=== PATIENT | female | born 1960 ===

== ENCOUNTER 2017-04-03 21:48 | Observation (INO) | payer MEDICAID ==
[2017-04-03 21:56] VITALS: BMI 27.4
--- NOTE | 2017-04-03 22:13 | ED PDOC ---
Arrival/HPI - General Chief Complaint: Dizziness/Lightheaded Time Seen by Provider: 04/03/17 22:07 Historian: Patient - History of Present Illness Narrative History of Present Illness (Text): 04/03/17 22:11 This 56 yo female pmh renal ca. s/p nephrectomy, and lobectomy, presents to this ED c/o left neck pain, radiates to left arm x 2 days. Patient stated she has been feeling dizzy, and she feels she is going to faint. She noted neck and arm pain radiates to her chest. Patient denies sob, abdominal pain, fever, rash, trauma, recent travel, or sick contact. Time/Duration: Other (2 days) Quality: Aching Context: Home Past Medical History - Provider Review Nursing Documentation Reviewed: Yes - Infectious Disease Hx of Infectious Diseases: None - Tetanus Immunization Tetanus Immunization: Unknown - Cardiac Hx Cardiac Disorders: Yes Hx Hypertension: Yes - Pulmonary Hx Respiratory Disorders: Yes Hx Asthma: Yes (SEASONAL-MOSTLY WEATHER, BEEN HOSPITALIZED) Other/Comment: NODULES IN LUNGS - Neurological Hx Dizziness: Yes Hx Paralysis: No - HEENT Hx HEENT Disorder: No Other/Comment: glasses,dry eyes - Renal Hx Renal Disorder: Yes Hx Renal Cancer: Yes (DX: RENAL MASS JANUARY 2015) Other/Comment: Interstitial cystitis. Nephrectomy - Endocrine/Metabolic Hx Endocrine Disorders: No - Hematological/Oncological Hx Blood Disorders: No Hx Blood Transfusions: No - Integumentary Hx Dermatological Disorder: No - Musculoskeletal/Rheumatological Hx Musculoskeletal Disorders: No - Gastrointestinal Hx Gastrointestinal Disorders: Yes Hx Gastroesophageal Reflux: Yes Other/Comment: gi bleed - Genitourinary/Gynecological Hx Genitourinary Disorders: Yes Other/Comment: "INTERSTITIAL CYSTITIS" - Psychiatric Hx Psychophysiologic Disorder: Yes Hx Depression: Yes Hx Emotional Abuse: No Hx Physical Abuse: No Hx Substance Use: No - Surgical History Hx Appendectomy: Yes Hx Pulmonary Surgery: Yes (right lobectomy) Other/Comment: right nephrectomy - Anesthesia Hx Anesthesia: Yes Hx Anesthesia Reactions: Yes (N/V,DIZZINESS) Hx Malignant Hyperthermia: No - Suicidal Assessment Feels Threatened In Home Enviroment: No Family/Social History - Physician Review Nursing Documentation Reviewed: Yes Family/Social History: Other (non-contributory) Smoking Status: Former Smoker Hx Alcohol Use: No Hx Substance Use: No Hx Substance Use Treatment: No Allergies/Home Meds Allergies/Adverse Reactions: Allergies gluten Allergy (Severe, Verified 06/22/16 15:05) DIARRHEA lactose Allergy (Severe, Verified 06/22/16 15:05) DIARRHEA Home Medications: Home Meds Medication Instructions Recorded Confirmed Amitriptyline [Elavil] 5 mg PO DAILY PRN 07/31/15 06/22/16 Zolpidem Tartrate [Ambien] 5 mg PO HS 07/31/15 06/22/16 Ergocalciferol (Vitamin D2) 1,000 units PO DAILY 06/22/16 06/22/16 [Vitamin D] Fluticasone Propionate [Flonase] 2 spray IN DAILY 06/22/16 06/22/16 Hydroxyzine HCl [Hydroxyzine HCl] 10 mg PO HS 06/22/16 06/22/16 Lisinopril [Zestril] 5 mg PO BID 06/22/16 06/22/16 Pentosan Polysulfate Sodium 100 mg PO DAILY 06/22/16 06/22/16 [Elmiron] Ranitidine HCl [Zantac] 150 mg PO DAILY 06/22/16 06/22/16 Review of Systems - Review of Systems Constitutional: Normal. absent: Fatigue, Weight Change, Fevers Eyes: Normal. absent: Vision Changes ENT: Normal. absent: Sore Throat, Rhinorrhea Respiratory: absent: SOB, Cough, Sputum Cardiovascular: Chest Pain, Syncope. absent: Palpitations, Edema, Calf Pain, MEDLEY, Orthopnea Gastrointestinal: Normal. absent: Abdominal Pain, Nausea, Vomiting Genitourinary Female: Normal Musculoskeletal: Arthralgias, Neck Pain Skin: Normal. absent: Rash Neurological: Dizziness. absent: Headache, Focal Weakness, Gait Changes, Speech Changes, Facial Droop, Disequilibrium, Seizure Endocrine: Normal Hemo/Lymphatic: Normal Psychiatric: Normal Physical Exam Vital Signs Temp Pulse Resp BP Pulse Ox 04/03/17 23:53 98.1 F 04/03/17 22:49 89.2 F L 55 L 16 138/82 99 Temperature: Afebrile Blood Pressure: Normal Pulse: Regular Respiratory Rate: Normal Appearance: Positive for: Well-Appearing, Non-Toxic, Comfortable Pain Distress: None Mental Status: Positive for: Alert and Oriented X 3 - Systems Exam Head: Present: Atraumatic, Normocephalic Pupils: Present: PERRL Extroacular Muscles: Present: EOMI Conjunctiva: Present: Normal Mouth: Present: Moist Mucous Membranes Neck: Present: Normal Range of Motion, Trachea Midline. No: Meningeal Signs, MIDLINE TENDERNESS, Paraspinal Tenderness Respiratory/Chest: Present: Clear to Auscultation, Good Air Exchange. No: Respiratory Distress, Accessory Muscle Use Cardiovascular: Present: Regular Rate and Rhythm, Normal S1, S2. No: Murmurs Abdomen: Present: Normal Bowel Sounds. No: Tenderness, Distention, Peritoneal Signs Back: Present: Normal Inspection. No: CVA Tenderness Upper Extremity: Present: Normal Inspection, Normal ROM, NORMAL PULSES, Neurovascularly Intact, Capillary Refill < 2s. No: Cyanosis, Edema Lower Extremity: Present: Normal Inspection, NORMAL PULSES, Normal ROM, Capillary Refill < 2 s. No: Edema, CALF TENDERNESS Neurological: Present: GCS=15, CN II-XII Intact, Speech Normal, Motor Func Grossly Intact, Normal Sensory Function, Normal Cerebellar Funct, Gait Normal, Memory Normal Skin: Present: Warm, Dry, Normal Color. No: Rashes Psychiatric: Present: Alert, Oriented x 3, Normal Insight, Normal Concentration Medical Decision Making ED Course and Treatment: 04/04/17 00:[address] Clark regarding patient c/o dizziness, near syncope with cp, neck pain, and arm pain. EKG shows Bradycardia. He agrees with plan for observation 04/04/17 00:25 There was not remote Telemetry. Observation was for Telemetry was entered Re-evaluation Time: 23:33 Reassessment Condition: Re-examined, Improving,but remains with symptoms - Lab Interpretations Lab Results: 04/03/17 22:40 04/03/17 22:40 Lab Results 04/03/17 22:40: Urine Color Straw, Urine Appearance Clear, Urine pH 7.5, Ur Specific [place] <= 1.005, Urine Protein Negative, Urine Glucose (UA) Negative, Urine Ketones Negative, Urine Blood Negative, Urine Nitrate Negative, Urine Bilirubin Negative, Urine Urobilinogen 0.2, Ur Leukocyte Esterase Negative 04/03/17 22:40: Sodium 138, Potassium 4.1, Chloride 100, Carbon Dioxide 30, Anion Gap 12, BUN 15, Creatinine 1.1, Est GFR ( Amer) > 60, Est GFR (Non- Af Amer) 51, Random Glucose 88, Calcium 9.2, Total Bilirubin 0.3, AST 33, ALT 45 , Alkaline Phosphatase 127 H, Lactate Dehydrogenase 442, Total Creatine Kinase 48, Troponin I < 0.01, Total Protein 7.3, Albumin 4.3, Globulin 3.0, Albumin/ Globulin Ratio 1.4 04/03/17 22:40: D-Dimer, Quantitative 0.33 04/03/17 22:40: WBC 7.0, RBC 4.49, Hgb 13.7, Hct 39.9, MCV 88.9, MCH 30.5, MCHC 34.3, RDW 13.4, Plt Count 221, MPV 9.9, Gran % 57.0, Lymph % (Auto) 33.1, [place] % (Auto) 7.5 H, Eos % (Auto) 1.7, Baso % (Auto) 0.7, Gran # 3.96, Lymph # 2.3, [place] # 0.5, Eos # 0.1, Baso # 0.05 I have reviewed the lab results: Yes Interpretation: No clinic. lab abnormalty - RAD Interpretation Radiology Orders: 04/03/17 22:17 HEAD W/O CONTRAST [CT] Stat 04/03/17 22:23 CHEST PORTABLE [RAD] Stat - EKG Interpretation Interpreted by ED Physician: Yes (Snus Bradycardia @ 52 bpm. Normal interval) Type: 12 lead EKG Comparison: No previous EKG avail. - Medication Orders Current Medication Orders: Discontinued Medications Diazepam (Valium) 2 mg PO ONCE ONE PRN Reason: Protocol Stop: 04/03/17 22:17 Last Admin: 04/03/17 23:56 Dose: 2 mg Sodium Chloride (Sodium Chloride 0.9%) 1,000 mls @ 999 mls/hr IV .Q1H1M STA Stop: 04/03/17 23:14 Last Admin: 04/03/17 23:16 Dose: 999 mls/hr Meclizine HCl (Antivert) 50 mg PO STAT STA Stop: 04/03/17 22:16 Last Admin: 04/03/17 23:15 Dose: 50 mg Disposition/Present on Arrival - Present on Arrival Any Indicators Present on Arrival: No History of DVT/PE: No History of Uncontrolled Diabetes: No Urinary Catheter: No History of Decub. Ulcer: No History Surgical Site Infection Following: None - Disposition Have Diagnosis and Disposition been Completed?: Yes Diagnosis: Bradycardia, Chest pain, Near syncope Disposition: HOSPITALIZED Disposition Time: 00:23 Patient Plan: Admission Patient Problems: Current Active Problems Problem Status Onset Bradycardia Acute Chest pain Acute Near syncope Acute Condition: STABLE Discharge Instructions (ExitCare): Chest Pain (ED) Referrals: Erin Felix DO [Primary Care Provider] - Follow up with primary Forms: [employer] (Mauritian)
[2017-04-03] MEDS ORDERED: Sodium Chloride 0.9% 1,000 ML IV STA (22:14)
[2017-04-03 23:00] LABS: BASO # 0.05 K/mm3 (0.0-2.0); BASO % 0.7 % (0.0-3.0); EOS # 0.1 (0.0-0.7); EOS % 1.7 % (1.5-5.0); GRAN # 3.96 (1.4-6.5); HEMATOCRIT 39.9 % (36.0-48.0); LYMPH # 2.3 (1.2-3.4); LYMPH % 33.1 % (22.0-35.0); MEAN CELL VOLUME 88.9 fl (80.0-105.0); MEAN CORPUSCULAR HEMOGLOBIN 30.5 pg (25.0-35.0); MEAN CORPUSCULAR HGB CONC 34.3 g/dl (31.0-37.0); MEAN PLATELET VOLUME 9.9 fl (7.0-11.0); MONO # 0.5 (0.1-0.6); MONO % 7.5 % (1.0-6.0); PH,URINE 7.5 (4.7-8.0); RED CELL DISTRIBUTION WIDTH 13.4 % (11.5-14.5); URINE BILIRUBIN NEGATIVE (NEGATIVE); URINE BLOOD NEGATIVE (NEGATIVE); URINE GLUCOSE (UA) NEGATIVE (NEGATIVE); URINE KETONE NEGATIVE (NEGATIVE); URINE LEUKOCYTE ESTERASE NEGATIVE Leu/uL (NEGATIVE); URINE PROTEIN NEGATIVE mg/dL (<30 mg/dL); URINE UROBILINOGEN 0.2 E.U./dL (<1 E.U./dL)
[2017-04-03 23:10] LABS: ALB/GLOB RATIO 1.4 (1.1-1.8); ALKALINE PHOSPHATASE 127 U/L (38-126); ALT/SGPT 45 U/L (7-56); AST/SGOT 33 U/L (14-36); BILIRUBIN,TOTAL 0.3 mg/dL (0.2-1.3); BLOOD UREA NITROGEN 15 mg/dL (7-21); CALCIUM 9.2 mg/dL (8.4-10.5); CARBON DIOXIDE 30 mmol/L (21-33); CHLORIDE 100 mmol/L (98-107); GFR AFRICAN-AMERICAN > 60; GLUCOSE,RANDOM 88 mg/dL (70-110); POTASSIUM 4.1 mmol/L (3.6-5.0); SODIUM 138 mmol/L (132-148); TOTAL PROTEIN 7.3 g/dL (5.8-8.3)
[2017-04-03 23:18] LABS: URINE APPEARANCE CLEAR (CLEAR); URINE COLOR STRAW (YELLOW)
[2017-04-03 23:21] LABS: TROPONIN I < 0.01 ng/mL
--- NOTE | 2017-04-04 00:01 | CT ---
EXAM: CT Head Without Intravenous Contrast CLINICAL HISTORY: 56 years old, female; Signs and symptoms; Dizziness TECHNIQUE: Axial computed tomography images of the head/brain without intravenous contrast. All CT scans at this facility use one or more dose reduction techniques, viz.: automated exposure control; ma/kV adjustment per patient size (including targeted exams where dose is matched to indication; i.e. head); or iterative reconstruction technique. COMPARISON: CT - HEAD W/O CONTRAST 03/07/2016 1:21:42 AM FINDINGS: Brain: Minimal atrophy. No intracranial hemorrhage. Small calcification/calcified lesion LEFT frontal region, stable. No definite edema. Ventricles: No hydrocephalus. Bones/joints: No acute fracture. Soft tissues: Unremarkable. Sinuses: No acute sinusitis. Mastoid air cells: No mastoid effusion. Orbits: Unremarkable as visualized. IMPRESSION: 1. No acute intracranial abnormality. 2. Incidental/non-acute findings are described above.
[2017-04-04] MEDS: Pantoprazole 40 mg EC Tab PO SCH (05:29)
--- NOTE | 2017-04-04 06:08 | CP.PCM.HP ---
<NARAYAN TOLENTINO - Last Filed: 04/04/17 05:51> History of Present Illness - History of Present Illness History of Present Illness: Narayan Ade LAWRENCE PGY1 - Internal Medicine H&P CC: Neck pain, dizziness HPI: 56yo F with PMH of stage IV renal cell CA s/p right nephrectomy and RLL lobectomy, and interstitial cystitis, presented to ER complaining of left sided neck pain and dizziness. Left neck pain started 3 days ago, and radiates to her chest and left arm. Pain is aching in character, constant, but occasionally flares up with certain movements. Pain does not worsen with exertion, not associated with dyspnea, diaphoresis, dizziness. No particular remitting factors. She has not had this pain before. Dizziness started 2 days ago. She describes her dizziness as lightheadedness associated with mild nausea, worse when she gets up or moves. The day before she started feeling dizzy, she had a PET scan with PO barium contrast, which caused her to have many soft BM's the subsequent day. She has also been urinating more frequently than usual, not associated with burning, pain, urgency , hesitancy, or hematuria. PMH: As above PSH: R radical nephrectomy 2015, RLL lobectomy 2016 Meds: Elmiron, Flonase, Hydroxyzine, Ambien FHx: DM, HTN, Alzheimer, ESRD 2/2 DM Soc: Tob previous smoker 9PYH quit 2 yrs ago. EtOH denies. Illicits denies. All: NKDA ROS: Constitutional: pt denies fever, chills, generalized weakness ENT: pt denies dysphagia, otalgia, hearing deficit, rhinorrhea Eyes: pt denies sudden loss of vision, diplopia, blurred vision MSK: Admits to neck pain pt denies muscle stiffness, joint pain, extremity cramping Cardio: Admits to CP pt denies sob, heart murmur Pulm: pt denies cough, hemoptysis, wheeze GI: pt denies loss of appetite, abdominal pain, constipation, melena, n/v/d : Admits to urinary frequency pt denies burning on urination, hematuria, urinary urgency Neuro: Admits to dizziness pt denies paresis, paresthesia, ferrell, numbness, tingling Derm: pt denies skin changes, lesions, nail changes Endo: pt denies intolerance to heat/cold, diaphoresis, night sweats, polydipsia Psych: pt denies anxiety, depression, mood changes Present on Admission - Present on Admission Any Indicators Present on Admission: No Past Patient History - Infectious Disease Hx of Infectious Diseases: None - Tetanus Immunizations Tetanus Immunization: Unknown - Past Medical History & Family History Past Medical History?: Yes - Past Social History Smoking Status: Former Smoker - CARDIAC Hx Cardiac Disorders: Yes Hx Hypertension: Yes - PULMONARY Hx Respiratory Disorders: Yes Hx Asthma: Yes (SEASONAL-MOSTLY WEATHER, BEEN HOSPITALIZED) Other/Comment: NODULES IN LUNGS - NEUROLOGICAL Hx Dizziness: Yes Hx Paralysis: No - HEENT Hx HEENT Problems: No Other/Comment: glasses,dry eyes - RENAL Hx Chronic Kidney Disease: Yes Hx Renal (Kidney) Cancer: Yes (DX: RENAL MASS JANUARY 2015) Other/Comment: Interstitial cystitis. Nephrectomy - ENDOCRINE/METABOLIC Hx Endocrine Disorders: No - HEMATOLOGICAL/ONCOLOGICAL Hx Blood Disorders: No Hx Blood Transfusions: No - INTEGUMENTARY Hx Dermatological Problems: No - MUSCULOSKELETAL/RHEUMATOLOGICAL Hx Musculoskeletal Disorders: No - GASTROINTESTINAL Hx Gastrointestinal Disorders: Yes Hx Gastroesophageal Reflux: Yes Other/Comment: gi bleed - GENITOURINARY/GYNECOLOGICAL Hx Genitourinary Disorders: Yes Other/Comment: "INTERSTITIAL CYSTITIS" - PSYCHIATRIC Hx Psychophysiologic Disorder: Yes Hx Depression: Yes Hx Emotional Abuse: No Hx Physical Abuse: No Hx Substance Use: No - SURGICAL HISTORY Hx Appendectomy: Yes Hx Pulmonary Surgery: Yes (right lobectomy) Other/Comment: right nephrectomy - ANESTHESIA Hx Anesthesia: Yes Hx Anesthesia Reactions: Yes (N/V,DIZZINESS) Hx Malignant Hyperthermia: No Meds Allergies/Adverse Reactions: Allergies Allergy/AdvReac Type Severity Reaction Status Date / Time gluten Allergy Severe DIARRHEA Verified 06/22/16 15:05 lactose Allergy Severe DIARRHEA Verified 06/22/16 15:05 Physical Exam - Constitutional Appears: Non-toxic, No Acute Distress - Head Exam Head Exam: ATRAUMATIC, NORMOCEPHALIC - Eye Exam Eye Exam: EOMI, Normal appearance, PERRL - ENT Exam ENT Exam: Mucous Membranes Moist - Neck Exam Neck exam: Negative for: Lymphadenopathy, Thyromegaly Additional comments: Left sided posterior cervical tenderness - Respiratory Exam Respiratory Exam: Chest Wall Tenderness, Clear to Auscultation Bilateral, NORMAL BREATHING PATTERN. absent: Rales, Rhonchi, Wheezes - Cardiovascular Exam Cardiovascular Exam: RRR, +S1, +S2 - GI/Abdominal Exam GI & Abdominal Exam: Normal Bowel Sounds, Soft, Tenderness (minimal, LLQ). absent: Firm, Guarding, Rebound, Rigid - Extremities Exam Extremities exam: Negative for: calf tenderness, pedal edema - Neurological Exam Neurological exam: Alert, CN II-XII Intact, Oriented x3 - Psychiatric Exam Psychiatric exam: Normal Affect, Normal Mood - Skin Skin Exam: Dry, Intact, Normal Color Results - Vital Signs Recent Vital Signs: Last Vital Signs Temp 98.0 F 04/04/17 02:19 Pulse 60 04/04/17 02:19 Resp 18 04/04/17 02:35 BP 129/88 04/04/17 02:19 Pulse Ox 99 04/04/17 02:35 - Labs Result Diagrams: 04/03/17 22:40 04/03/17 22:40 Assessment & Plan - Assessment and Plan (Free Text) Assessment: 56 yo F with PMH of renal cell CA and interstitial cystitis presents for left neck pain radiating to chest and left arm and dizziness Plan: 1. Neck pain radiating to chest - r/o ACS - Pain is not exertional and is reproducible on palpation of lateral chest wall , and on leftward rotation and sidebending of the neck - Most likely paracervical muscle spasm. Less likely ACS - Trop negative x1, continue to trend - EKG in ER shows NSR with no ST-T wave changes - Start Flexeril 5mg PO TID 2. Presyncope - Symptoms are associated with activity and positional changes, most likely orthostasis 2/2 mild dehydration - Orthostatic vital signs ordered - Rehydrate and reevaluate 3. CHYNA - BUN 15, Cr 1.1, elevated compared to her baseline - Likely prerenal, 2/2 mild dehydration after PO barium contrast administration - IVF NS @150cc/hr - Recheck with AM labs GI/DVT Ppx Patient seen, discussed, and reviewed with attending <Den Clark - Last Filed: 04/04/17 06:28> Results - Vital Signs Recent Vital Signs: Last Vital Signs Temp 98.6 F 04/04/17 06:00 Pulse 72 04/04/17 06:00 Resp 20 04/04/17 06:00 BP 133/76 04/04/17 06:00 Pulse Ox 96 04/04/17 06:00 - Labs Result Diagrams: 04/03/17 22:40 04/03/17 22:40 Attending/Attestation - Attestation I have personally seen and examined this patient.: Yes I have fully participated in the care of the patient.: Yes I have reviewed all pertinent clinical information: Yes Notes (Text): 04/04/17 06:27 Patient was seen when she was in [id number]. Agree with history, physical examination, assessment and plan.
[2017-04-04 07:33] LABS: BASO # 0.05 K/mm3 (0.0-2.0); BASO % 0.6 % (0.0-3.0); EOS # 0.1 (0.0-0.7); EOS % 1.5 % (1.5-5.0); GRAN # 4.32 (1.4-6.5); GRAN % 53.7 % (50.0-68.0); HEMATOCRIT 41.4 % (36.0-48.0); LYMPH # 2.9 (1.2-3.4); LYMPH % 36.1 % (22.0-35.0); MEAN CELL VOLUME 88.7 fl (80.0-105.0); MEAN CORPUSCULAR HGB CONC 33.8 g/dl (31.0-37.0); MEAN PLATELET VOLUME 10.1 fl (7.0-11.0); MONO # 0.7 (0.1-0.6); MONO % 8.1 % (1.0-6.0); RED CELL DISTRIBUTION WIDTH 13.4 % (11.5-14.5)
[2017-04-04] MEDS: Sodium Chloride 0.9% 1,000 ML IV SCH ×2 (07:37→17:51)
[2017-04-04 07:59] LABS: ALB/GLOB RATIO 1.4 (1.1-1.8); ALKALINE PHOSPHATASE 123 U/L (38-126); ALT/SGPT 49 U/L (7-56); AST/SGOT 30 U/L (14-36); BILIRUBIN,TOTAL 0.5 mg/dL (0.2-1.3); BLOOD UREA NITROGEN 13 mg/dL (7-21); CALCIUM 9.3 mg/dL (8.4-10.5); CARBON DIOXIDE 27 mmol/L (21-33); CHLORIDE 105 mmol/L (98-107); GFR AFRICAN-AMERICAN > 60; GLUCOSE,RANDOM 99 mg/dL (70-110); MAGNESIUM 2.2 mg/dL (1.7-2.2); PHOSPHOROUS 4.2 mg/dL (2.5-4.5); POTASSIUM 4.5 mmol/L (3.6-5.0); SODIUM 141 mmol/L (132-148)
[2017-04-04 08:15] LABS: TROPONIN I < 0.01 ng/mL
--- NOTE | 2017-04-04 09:19 | RAD ---
HISTORY: CP COMPARISON: Comparison is made to 02/14/2015 FINDINGS: LUNGS: Elevation of the right hemidiaphragm is noted which could be due to right lower lobe opacity/atelectasis or subpulmonic effusion. Otherwise no significant interval change in the lungs. PLEURA: No significant pleural effusion identified, no pneumothorax apparent. CARDIOVASCULAR: Normal. OSSEOUS STRUCTURES: No significant abnormalities. VISUALIZED UPPER ABDOMEN: Normal. OTHER FINDINGS: None. IMPRESSION: Elevation of the right hemidiaphragm of uncertain etiology could be due to right lower lobe atelectasis or subpulmonic effusion.
[2017-04-04 11:35] LABS: CHOLESTEROL 182 mg/dL (130-200)
--- NOTE | 2017-04-04 14:44 | CP.PCM.PCO ---
Physician Communication Note - Physician Communication Note Physician Communication Note: called [facility] ([facility]), confirmed meds ( incl synthroid 25mcg qd)
--- NOTE | 2017-04-04 16:34 | CARD ---
APPROVED REPORT EKG Measurement Heart [id number] <Conclusion> Marked sinus bradycardia
--- NOTE | 2017-04-04 16:53 | CARD ---
APPROVED REPORT EKG Measurement Heart [id number] [id number] <Conclusion> Sinus bradycardia Otherwise normal ECG
--- NOTE | 2017-04-04 18:34 | CARD ---
APPROVED REPORT EXAM: Two-dimensional and M-mode echocardiogram with Doppler and color Doppler. INDICATION LV Function:SystolicDiastolic 2D DIMENSIONS Left Atrium (2D)3.3 (1.6-4.0cm)IVSd1.1 (0.7-1.1cm) LVDd4.1 (3.9-5.9cm)PWd1.0 (0.7-1.1cm) LVDs2.8 (2.5-4.0cm)FS (%) 32.6 % LVEF (%)61.4 (>50%) M-Mode DIMENSIONS Aortic Root2.60 (2.2-3.7cm)Aortic Cusp Exc.1.60 (1.5-2.0cm) Aortic Valve AoV Peak Dhpjmelz430.0cm/Yari Peak GR.16mmHg Mitral Valve MV E Gzqkttqx146.0cm/sMV A Fellybdy903.0cm/sE/A ratio1.0 TDI E/Lateral E'0.0E/Medial E'0.0 Tricuspid Valve TR Peak [id number]/sRAP [id number] Peak Gr.29mmHg [id number] LEFT VENTRICLE The left ventricle is normal size. There is borderline concentric left ventricular hypertrophy. The left ventricular function is normal.EF-55-60% There is normal LV segmental wall motion. Transmitral Doppler flow pattern is Grade II-pseudonormal filling dynamics. No left ventricle thrombus noted on this study. There is no ventricular septal defect visualized. There is no left ventricular aneurysm. There is no mass noted in the left ventricle. RIGHT VENTRICLE The right ventricle is normal size. There is normal right ventricular wall thickness. The right ventricular systolic function is normal. ATRIA The left atrium size is normal. The right atrium size is normal. The interatrial septum is intact with no evidence for an atrial septal defect. AORTIC VALVE The aortic valve is thickened but opens well. The aortic valve is mildly sclerotic. No aortic regurgitation is present. There is no aortic valvular stenosis. There is no aortic valvular vegetation. MITRAL VALVE The mitral valve is thickened but opens well. Mitral regurgitation is mild. There is no mitral valve stenosis. There is no evidence of mitral valve prolapse. TRICUSPID VALVE The tricuspid valve leaflets are thickened , but open well. There is mild to moderate tricuspid regurgitation.RVSP-39 mmof Hg. There is no tricuspid valve stenosis. There is no tricuspid valve prolapse or vegetation. PULMONIC VALVE The pulmonic valve is borderline thickened. There is no pulmonic valvular regurgitation. There is no pulmonic valvular stenosis. GREAT VESSELS The aortic root is normal in size. The ascending aorta is normal in size. The pulmonary artery is normal. The IVC is normal in size and collapses >50% with inspiration. PERICARDIAL EFFUSION There is no pleural effusion. There is no pericardial effusion. <Conclusion> Normal chamber Size. Ef-55-60% Mitral regurgitation is mild. There is mild to moderate tricuspid regurgitation.RVSP-39 mmof Hg. No vegetation or thrombus noted.,
--- NOTE | 2017-04-04 22:34 | CON ---
DATE: 04/04/2017 HISTORY OF PRESENT ILLNESS: The patient is a 56-year-old women who presents with a syncopal episode. The patient's past medical history is notable for history of hypertension. No previous cardiac history is known. In addition, the patient complained of some transient chest discomfort. PAST MEDICAL HISTORY: Includes history of nephrectomy for renal CA as well as lobectomy. Currently, the patient is in bed without shortness of breath, without chest pain. SOCIAL HISTORY: She denies smoking. REVIEW OF SYSTEMS: A 14-point review of systems was reviewed. No cardiac symptomatology was noted. PHYSICAL EXAMINATION: VITAL SIGNS: Blood pressure is 116/84, there are no orthostatic changes, heart rate is in the 80s. NECK: Negative JVD. LUNGS: Without rales. HEART: Reveals S1 and S2. EXTREMITIES: Without edema. EKG is unremarkable. Telemetry monitoring shows no arrhythmias. LABORATORIES: Include troponins are negative x3. IMPRESSION: 1. Atypical chest pain. 2. No evidence for acute coronary syndrome. 3. Hypertension. 4. History of nephrectomy. 5. Syncope. Echocardiogram reveals good LV function and no LV outflow obstruction. There is no cardiac cause identified for her syncopal episode. There is no evidence for acute coronary syndrome. Given these findings, I have discussed with her about a stress test given her risk factors and chest pain. She is agreeable, we will arrange for an outpatient stress test. We will discontinue telemetry today. Tesfaye Acevedo MD
[2017-04-05 01:35] VITALS: RESP 20
[2017-04-05] MEDS: Sodium Chloride 0.9% 1,000 ML IV SCH (03:31)
[2017-04-05] MEDS ORDERED: Levothyroxine 25 MCG TAB PO SCH (06:00)
[2017-04-05] MEDS: Pantoprazole 40 mg EC Tab PO SCH (06:18)
[2017-04-05 07:40] LABS: ALB/GLOB RATIO 1.3 (1.1-1.8); ALKALINE PHOSPHATASE 128 U/L (38-126); ALT/SGPT 51 U/L (7-56); AST/SGOT 32 U/L (14-36); BILIRUBIN,TOTAL 0.6 mg/dL (0.2-1.3); BLOOD UREA NITROGEN 16 mg/dL (7-21); CALCIUM 9.2 mg/dL (8.4-10.5); CARBON DIOXIDE 26 mmol/L (21-33); CHLORIDE 104 mmol/L (95-110); GFR AFRICAN-AMERICAN > 60; GLUCOSE,RANDOM 90 mg/dL (70-110); POTASSIUM 4.1 mmol/L (3.6-5.0); SODIUM 141 mmol/L (132-148); TOTAL PROTEIN 7.1 g/dL (5.8-8.3)
[2017-04-05 07:57] VITALS: BP 128/81; PULSE 55; TEMP 98.1; O2SAT 96
[2017-04-05 08:12] LABS: BASO # 0.04 K/mm3 (0.0-2.0); BASO % 0.6 % (0.0-3.0); EOS # 0.1 (0.0-0.7); EOS % 1.5 % (1.5-5.0); GRAN # 3.88 (1.4-6.5); GRAN % 53.8 % (50.0-68.0); HEMATOCRIT 40.6 % (36.0-48.0); LYMPH # 2.7 (1.2-3.4); LYMPH % 36.8 % (22.0-35.0); MEAN CORPUSCULAR HEMOGLOBIN 29.6 pg (25.0-35.0); MEAN CORPUSCULAR HGB CONC 33.3 g/dl (31.0-37.0); MEAN PLATELET VOLUME 10.3 fl (7.0-11.0); MONO # 0.5 (0.1-0.6); MONO % 7.3 % (1.0-6.0); RED CELL DISTRIBUTION WIDTH 13.4 % (11.5-14.5); WHITE BLOOD COUNT 7.2 10^3/ul (4.5-11.0)
--- NOTE | 2017-04-05 15:23 | CP.PCM.DIS ---
<JAMARCUS CISNEROS - Last Filed: 04/05/17 22:54> Provider - Provider Date of Admission: 04/04/17 00:18 Attending physician: Randall Meyers MD Primary care physician: Erin Felix DO Time Spent in preparation of Discharge (in minutes): 45 Hospital Course - Lab Results Lab Results: Most Recent Lab Values WBC 7.2 10^3/ul (4.5-11.0) 04/05/17 07:07 RBC 4.56 10^6/uL (3.5-6.1) 04/05/17 07:07 Hgb 13.5 g/dL (12.0-16.0) 04/05/17 07:07 Hct 40.6 % (36.0-48.0) 04/05/17 07:07 MCV 89.0 fl (80.0-105.0) 04/05/17 07:07 MCH 29.6 pg (25.0-35.0) 04/05/17 07:07 MCHC 33.3 g/dl (31.0-37.0) 04/05/17 07:07 RDW 13.4 % (11.5-14.5) 04/05/17 07:07 Plt Count 221 10^3/uL (120.0-450.0) 04/05/17 07:07 MPV 10.3 fl (7.0-11.0) 04/05/17 07:07 Gran % 53.8 % (50.0-68.0) 04/05/17 07:07 Lymph % (Auto) 36.8 % (22.0-35.0) H 04/05/17 07:07 Levy % (Auto) 7.3 % (1.0-6.0) H 04/05/17 07:07 Eos % (Auto) 1.5 % (1.5-5.0) 04/05/17 07:07 Baso % (Auto) 0.6 % (0.0-3.0) 04/05/17 07:07 Gran # 3.88 (1.4-6.5) 04/05/17 07:07 Lymph # 2.7 (1.2-3.4) 04/05/17 07:07 Levy # 0.5 (0.1-0.6) 04/05/17 07:07 Eos # 0.1 (0.0-0.7) 04/05/17 07:07 Baso # 0.04 K/mm3 (0.0-2.0) 04/05/17 07:07 D-Dimer, Quantitative 0.33 mg/L FEU (0-0.50) 04/03/17 22:40 Sodium 141 mmol/L (132-148) 04/05/17 07:07 Potassium 4.1 mmol/L (3.6-5.0) 04/05/17 07:07 Chloride 104 mmol/L (95-110) 04/05/17 07:07 Carbon Dioxide 26 mmol/L (21-33) 04/05/17 07:07 Anion Gap 15 (10-20) 04/05/17 07:07 BUN 16 mg/dL (7-21) 04/05/17 07:07 Creatinine 0.9 mg/dL (0.5-1.4) 04/05/17 07:07 Est GFR ( Amer) > 60 04/05/17 07:07 Est GFR (Non-Af Amer) > 60 04/05/17 07:07 Random Glucose 90 mg/dL (70-110) 04/05/17 07:07 Hemoglobin A1c 5.8 % (4.2-6.5) 04/04/17 06:00 Calcium 9.2 mg/dL (8.4-10.5) 04/05/17 07:07 Phosphorus 4.2 mg/dL (2.5-4.5) 04/04/17 06:40 Magnesium 2.2 mg/dL (1.7-2.2) 04/04/17 06:40 Total Bilirubin 0.6 mg/dL (0.2-1.3) 04/05/17 07:07 AST 32 U/L (14-36) 04/05/17 07:07 ALT 51 U/L (7-56) 04/05/17 07:07 Alkaline Phosphatase 128 U/L (38-126) H 04/05/17 07:07 Lactate Dehydrogenase 442 U/L (333-699) 04/03/17 22:40 Total Creatine Kinase 48 U/L (35-230) 04/03/17 22:40 Troponin I < 0.01 ng/mL 04/04/17 11:45 Total Protein 7.1 g/dL (5.8-8.3) 04/05/17 07:07 Albumin 4.0 g/dL (3.0-4.8) 04/05/17 07:07 Globulin 3.1 gm/dL 04/05/17 07:07 Albumin/Globulin Ratio 1.3 (1.1-1.8) 04/05/17 07:07 Triglycerides 112 mg/dL (35-160) 04/04/17 06:05 Cholesterol 182 mg/dL (130-200) 04/04/17 06:05 LDL Cholesterol Direct 114 mg/dL (0-129) 04/04/17 06:05 HDL Cholesterol 44 mg/dL (29-60) 04/04/17 06:05 Thyroxine (T4) 7.2 ug/dL (5.5-11.0) 04/04/17 11:45 TSH 3rd Generation 6.62 mIU/mL (0.46-4.68) H 04/04/17 11:45 Urine Color Straw (YELLOW) 04/03/17 22:40 Urine Appearance Clear (CLEAR) 04/03/17 22:40 Urine pH 7.5 (4.7-8.0) 04/03/17 22:40 Ur Specific Dawson <= 1.005 (1.005-1.035) 04/03/17 22:40 Urine Protein Negative mg/dL (<30 mg/dL) 04/03/17 22:40 Urine Glucose (UA) Negative mg/dL (NEGATIVE) 04/03/17 22:40 Urine Ketones Negative mg/dL (NEGATIVE) 04/03/17 22:40 Urine Blood Negative (NEGATIVE) 04/03/17 22:40 Urine Nitrate Negative (NEGATIVE) 04/03/17 22:40 Urine Bilirubin Negative (NEGATIVE) 04/03/17 22:40 Urine Urobilinogen 0.2 E.U./dL (<1 E.U./dL) 04/03/17 22:40 Ur Leukocyte Esterase Negative Alexandra/uL (NEGATIVE) 04/03/17 22:40 - Hospital Course Hospital Course: 56 yo F with PMH of renal cell CA and interstitial cystitis presents for left neck pain radiating to chest and left arm and dizziness, pre-syncope, as well as increased urination. Due to pt's hx of R nephrectomy and RLL partial lobectomy, she was worried that she could have a problem with her good kidney. Pt's complaints were nonspecific. Pt was transferred to med-surg floor for workup. CT head was done and was unremarkable. EKG showed sinus kari, Echo showed EF 60% and no significant valvular dysfunction. Cardiology was consulted and they recommended outpatient stress test since echo was unremarkable and pt's heart monitor strip was uneventful. TSH was elevated but T4 level was normal, indicating subclinical hypothyroidism; pt states she's currently not taking synthroid due to a reaction. Carotid doppler test is still not read at this moment, but patient will be discharged and communicated with regarding results when they come back. PT eval was put, and resident walked with patient and pt was noted to have good balance and no dizziness/orthostasis. Pt is prescribed flexeril for her intermittent pain, and recommended to f.u with her associate financial planner for renal fxn maintenance, sand control worker for thyroid fxn mangement, restorer [employer] prints for stress test, and PMD for f/u. - Date & Time of H&P Date of H&P: 04/04/17 Time of H&P: 05:50 Discharge Exam - Additional Findings Additional findings: - Constitutional Appears: Non-toxic, No Acute Distress - Head Exam Head Exam: ATRAUMATIC, NORMOCEPHALIC - Eye Exam Eye Exam: EOMI, Normal appearance, PERRL - ENT Exam ENT Exam: Mucous Membranes Moist - Neck Exam Neck exam: Negative for: Lymphadenopathy, Thyromegaly - Respiratory Exam Respiratory Exam: Clear to Auscultation Bilateral, NORMAL BREATHING PATTERN. absent: Rales, Rhonchi, Wheezes - Cardiovascular Exam Cardiovascular Exam: RRR, +S1, +S2 - GI/Abdominal Exam GI & Abdominal Exam: Normal Bowel Sounds, Soft, Tenderness (minimal, LLQ). absent: Firm, Guarding, Rebound, Rigid - Extremities Exam Extremities exam: Negative for: calf tenderness, pedal edema - Neurological Exam Neurological exam: Alert, CN II-XII Intact, Oriented x3 - Psychiatric Exam Psychiatric exam: Normal Affect, Normal Mood - Skin Skin Exam: Dry, Intact, Normal Color Discharge Plan - Discharge Medications Prescriptions: Cyclobenzaprine [Flexeril] 5 mg PO BID PRN #10 tab PRN Reason: Muscle Spasm - Follow Up Plan Condition: STABLE Disposition: HOME/ ROUTINE Additional Instructions: - please take the Flexeril when you feel the muscle spasms, as prescribed - please follow up with your PMD within 1 week - please follow up with your associate financial planner for continued management of your kidney function - please follow up with your sand control worker for workup and management of your thyroid function - please follow up with the restorer paper and prints Dr. Acevedo for a stress test - we will contact if there's any pertinent results from your carotid ultrasound study - if you experience any dizziness, falls, chest pain, or sob, please go to ER for workup Thanks Jamarcus Cisneros PGY1 Dr. Meyers, Attending Physician Referrals: Erin Felix DO [Primary Care Provider] - Tesfaye Acevedo MD [Staff Provider] - <Randall Meyers - Last Filed: 04/06/17 13:55> Provider - Provider Date of Admission: 04/04/17 00:18 Attending physician: Randall Meyers MD Primary care physician: Erin Felix DO Hospital Course - Lab Results Lab Results: Most Recent Lab Values WBC 7.2 10^3/ul (4.5-11.0) 04/05/17 07:07 RBC 4.56 10^6/uL (3.5-6.1) 04/05/17 07:07 Hgb 13.5 g/dL (12.0-16.0) 04/05/17 07:07 Hct 40.6 % (36.0-48.0) 04/05/17 07:07 MCV 89.0 fl (80.0-105.0) 04/05/17 07:07 MCH 29.6 pg (25.0-35.0) 04/05/17 07:07 MCHC 33.3 g/dl (31.0-37.0) 04/05/17 07:07 RDW 13.4 % (11.5-14.5) 04/05/17 07:07 Plt Count 221 10^3/uL (120.0-450.0) 04/05/17 07:07 MPV 10.3 fl (7.0-11.0) 04/05/17 07:07 Gran % 53.8 % (50.0-68.0) 04/05/17 07:07 Lymph % (Auto) 36.8 % (22.0-35.0) H 04/05/17 07:07 Levy % (Auto) 7.3 % (1.0-6.0) H 04/05/17 07:07 Eos % (Auto) 1.5 % (1.5-5.0) 04/05/17 07:07 Baso % (Auto) 0.6 % (0.0-3.0) 04/05/17 07:07 Gran # 3.88 (1.4-6.5) 04/05/17 07:07 Lymph # 2.7 (1.2-3.4) 04/05/17 07:07 Levy # 0.5 (0.1-0.6) 04/05/17 07:07 Eos # 0.1 (0.0-0.7) 04/05/17 07:07 Baso # 0.04 K/mm3 (0.0-2.0) 04/05/17 07:07 D-Dimer, Quantitative 0.33 mg/L FEU (0-0.50) 04/03/17 22:40 Sodium 141 mmol/L (132-148) 04/05/17 07:07 Potassium 4.1 mmol/L (3.6-5.0) 04/05/17 07:07 Chloride 104 mmol/L (95-110) 04/05/17 07:07 Carbon Dioxide 26 mmol/L (21-33) 04/05/17 07:07 Anion Gap 15 (10-20) 04/05/17 07:07 BUN 16 mg/dL (7-21) 04/05/17 07:07 Creatinine 0.9 mg/dL (0.5-1.4) 04/05/17 07:07 Est GFR ( Amer) > 60 04/05/17 07:07 Est GFR (Non-Af Amer) > 60 04/05/17 07:07 Random Glucose 90 mg/dL (70-110) 04/05/17 07:07 Hemoglobin A1c 5.8 % (4.2-6.5) 04/04/17 06:00 Calcium 9.2 mg/dL (8.4-10.5) 04/05/17 07:07 Phosphorus 4.2 mg/dL (2.5-4.5) 04/04/17 06:40 Magnesium 2.2 mg/dL (1.7-2.2) 04/04/17 06:40 Total Bilirubin 0.6 mg/dL (0.2-1.3) 04/05/17 07:07 AST 32 U/L (14-36) 04/05/17 07:07 ALT 51 U/L (7-56) 04/05/17 07:07 Alkaline Phosphatase 128 U/L (38-126) H 04/05/17 07:07 Lactate Dehydrogenase 442 U/L (333-699) 04/03/17 22:40 Total Creatine Kinase 48 U/L (35-230) 04/03/17 22:40 Troponin I < 0.01 ng/mL 04/04/17 11:45 Total Protein 7.1 g/dL (5.8-8.3) 04/05/17 07:07 Albumin 4.0 g/dL (3.0-4.8) 04/05/17 07:07 Globulin 3.1 gm/dL 04/05/17 07:07 Albumin/Globulin Ratio 1.3 (1.1-1.8) 04/05/17 07:07 Triglycerides 112 mg/dL (35-160) 04/04/17 06:05 Cholesterol 182 mg/dL (130-200) 04/04/17 06:05 LDL Cholesterol Direct 114 mg/dL (0-129) 04/04/17 06:05 HDL Cholesterol 44 mg/dL (29-60) 04/04/17 06:05 Thyroxine (T4) 7.2 ug/dL (5.5-11.0) 04/04/17 11:45 TSH 3rd Generation 6.62 mIU/mL (0.46-4.68) H 04/04/17 11:45 Urine Color Straw (YELLOW) 04/03/17 22:40 Urine Appearance Clear (CLEAR) 04/03/17 22:40 Urine pH 7.5 (4.7-8.0) 04/03/17 22:40 Ur Specific Dawson <= 1.005 (1.005-1.035) 04/03/17 22:40 Urine Protein Negative mg/dL (<30 mg/dL) 04/03/17 22:40 Urine Glucose (UA) Negative mg/dL (NEGATIVE) 04/03/17 22:40 Urine Ketones Negative mg/dL (NEGATIVE) 04/03/17 22:40 Urine Blood Negative (NEGATIVE) 04/03/17 22:40 Urine Nitrate Negative (NEGATIVE) 04/03/17 22:40 Urine Bilirubin Negative (NEGATIVE) 04/03/17 22:40 Urine Urobilinogen 0.2 E.U./dL (<1 E.U./dL) 04/03/17 22:40 Ur Leukocyte Esterase Negative Alexandra/uL (NEGATIVE) 04/03/17 22:40 Attending/Attestation - Attestation I have personally seen and examined this patient.: Yes I have fully participated in the care of the patient.: Yes I have reviewed all pertinent clinical information, including history, physical exam and plan: Yes Notes (Text): I have seen and examined the patient at bedside. Agree with the above note with the following additions/ exceptions: Briefly this is 56 year old female with history of renal cell cancer, interstitial cystitis who presented with musculoskeletal pain which got imprved with flexeril. Cardiology consult was obtained and she was recommended to have outpateint stress test. Echo was normal. Carotid duplex still pending. She also has subclinnical hypothyroidism and she has already been seeing sand control worker as an outpatient. Patient reports that she is allergic to synthroid. Her gait was stable. Upon discharge patient will follow up with Dr Felix. Dr Randall Meyers
--- NOTE | 2017-04-06 17:57 | US ---
PROCEDURE: Bilateral carotid artery duplex ultrasound HISTORY: Carotid stenosis PHYSICIAN(S): Tesfaye Ramos MD. TECHNIQUE: Duplex sonography and color-flow Doppler were used to evaluate the carotid bifurcations and limited segments of the vertebral arteries bilaterally. FINDINGS: There is mild smooth hypoechoic plaque noted at the carotid bifurcations bilaterally. The peak systolic velocity in the proximal right internal carotid artery is 100 cm/sec. This corresponds to a 20 to 39% proximal right ICA stenosis. Normal systolic velocities are noted in the proximal right external carotid artery. There is antegrade flow in the right vertebral artery. The peak systolic velocity in the proximal left internal carotid artery is 102 cm/sec. This corresponds to a 20 to 39% proximal left ICA stenosis. Normal systolic velocities are noted in the proximal left external carotid artery. There is antegrade flow in the left vertebral artery. IMPRESSION: 1. Bilateral 20-39% proximal ICA stenoses. 2. Antegrade flow in both vertebral arteries.
== END 2017-04-05 17:28 | disposition home or self-care (01) ==
LOC: ED 21:48 → ERH 04-04 00:18 → 2RSO 04-04 02:39 → 5RNO 04-04 18:52
PROVIDERS: ADMIT Hospitalist; ATTEND Hospitalist
DX: R07.89 Other chest pain (principal); N17.9 Acute kidney failure, unspecified; N30.10 Interstitial cystitis (chronic) without hematuria; J45.909 Unspecified asthma, uncomplicated; G30.9 Alzheimer's disease, unspecified; F02.80 Dementia in other diseases classified elsewhere, unspecified severity, without behavioral disturbance, psychotic disturbance, mood disturbance, and anxiety; E11.9 Type 2 diabetes mellitus without complications; E03.9 Hypothyroidism, unspecified; Z85.528 Personal history of other malignant neoplasm of kidney; Z90.5 Acquired absence of kidney; K21.9 Gastro-esophageal reflux disease without esophagitis; K92.2 Gastrointestinal hemorrhage, unspecified; Z79.899 Other long term (current) drug therapy; Z87.891 Personal history of nicotine dependence; Z90.2 Acquired absence of lung [part of]; Z90.49 Acquired absence of other specified parts of digestive tract; F32.89 Other specified depressive episodes; Z91.018 Allergy to other foods; R40.2412 Glasgow coma scale score 13-15, at arrival to emergency department; R00.1 Bradycardia, unspecified; R55 Syncope and collapse; M54.2 Cervicalgia; E86.0 Dehydration
CPT/HCPCS: 36415; 70450; 71010; 80053; 80061; 81003; 82550; 83036; 83615; 83735; 84100; 84436; 84443; 84484; 85025; 85378; 87086; 93005; 93306; 93880; 96360; 99285; G0378; J1644; J7040

== ENCOUNTER 2017-06-07 01:43 | Emergency (ER) | payer MEDICAID ==
[2017-06-07 01:44] VITALS: BMI 27.4
[2017-06-07 02:15] VITALS: TEMP 97.8; O2SAT 99
--- NOTE | 2017-06-07 03:59 | ED PDOC ---
Arrival/HPI - General Chief Complaint: Rib Injury Time Seen by Provider: 06/07/17 02:31 Historian: Patient - History of Present Illness Narrative History of Present Illness (Text): 06/07/17 02:35 56 year old female, whose past medical history includes renal cancer s/p right radical nephrectomy 2014, RLL lobectomy 2015, presents to the emergency department complaining of rib pain that began 2 days ago. Patient reports she was sitting up in bed when she heard a "pop" sound on her right lower ribs. Patient is worried that it may have to do with her lobectomy. Patient denies chest pain, shortness of breath, nausea, vomiting, or any other complaint/ injuries. PMD: Dr. Felix Time/Duration: Other (2 days ) Symptom Onset: Sudden Symptom Course: Unchanged Activities at Onset: Light Context: Home Past Medical History - Provider Review Nursing Documentation Reviewed: Yes - Infectious Disease Hx of Infectious Diseases: None - Tetanus Immunization Tetanus Immunization: Unknown - Cardiac Hx Cardiac Disorders: Yes Hx Hypertension: Yes - Pulmonary Hx Respiratory Disorders: Yes Hx Asthma: Yes (SEASONAL-MOSTLY WEATHER, BEEN HOSPITALIZED) Other/Comment: NODULES IN LUNGS - Neurological Hx Dizziness: Yes Hx Paralysis: No - HEENT Hx HEENT Disorder: No Other/Comment: glasses,dry eyes - Renal Hx Renal Disorder: Yes Hx Renal Cancer: Yes (DX: RENAL MASS JANUARY 2015) Other/Comment: Interstitial cystitis. Nephrectomy - Endocrine/Metabolic Hx Endocrine Disorders: No - Hematological/Oncological Hx Blood Disorders: No Hx Blood Transfusions: No - Integumentary Hx Dermatological Disorder: No - Musculoskeletal/Rheumatological Hx Musculoskeletal Disorders: No - Gastrointestinal Hx Gastrointestinal Disorders: Yes Hx Gastroesophageal Reflux: Yes Other/Comment: gi bleed - Genitourinary/Gynecological Hx Genitourinary Disorders: Yes Other/Comment: "INTERSTITIAL CYSTITIS" - Psychiatric Hx Psychophysiologic Disorder: Yes Hx Depression: Yes Hx Emotional Abuse: No Hx Physical Abuse: No Hx Substance Use: No - Surgical History Hx Appendectomy: Yes Hx Pulmonary Surgery: Yes (right lobectomy) Other/Comment: right nephrectomy - Anesthesia Hx Anesthesia: Yes Hx Anesthesia Reactions: Yes (N/V,DIZZINESS) Hx Malignant Hyperthermia: No - Suicidal Assessment Feels Threatened In Home Enviroment: No Family/Social History - Physician Review Nursing Documentation Reviewed: Yes Family/Social History: No Known Family HX Smoking Status: Former Smoker Hx Alcohol Use: No Hx Substance Use: No Hx Substance Use Treatment: No Allergies/Home Meds Allergies/Adverse Reactions: Allergies gluten Allergy (Severe, Verified 06/22/16 15:05) DIARRHEA lactose Allergy (Severe, Verified 06/22/16 15:05) DIARRHEA Home Medications: Home Meds Medication Instructions Recorded Confirmed Amitriptyline [Elavil] 5 mg PO DAILY PRN 07/31/15 06/22/16 Zolpidem Tartrate [Ambien] 5 mg PO HS 07/31/15 06/22/16 Fluticasone Propionate [Flonase] 2 spray IN DAILY 06/22/16 06/22/16 Hydroxyzine HCl 10 mg PO HS 06/22/16 06/22/16 Lisinopril [Zestril] 5 mg PO BID 06/22/16 06/22/16 Pentosan Polysulfate Sodium 100 mg PO DAILY 06/22/16 06/22/16 [Elmiron] Ranitidine HCl [Zantac] 150 mg PO DAILY 06/22/16 06/22/16 Review of Systems - Physician Review All systems were reviewed & negative as marked: Yes - Review of Systems Respiratory: absent: SOB Cardiovascular: absent: Chest Pain Gastrointestinal: absent: Nausea, Vomiting Musculoskeletal: Other (Right lower rib pain) Physical Exam Vital Signs Reviewed: Yes Vital Signs Temp Pulse Resp BP Pulse Ox 06/07/17 02:14 97.8 F 67 17 138/66 99 Temperature: Afebrile Blood Pressure: Normal Pulse: Regular Respiratory Rate: Normal Appearance: Positive for: Well-Appearing, Non-Toxic, Comfortable Pain Distress: None Mental Status: Positive for: Alert and Oriented X 3 - Systems Exam Head: Present: Atraumatic, Normocephalic Pupils: Present: PERRL Extroacular Muscles: Present: EOMI Conjunctiva: Present: Normal Mouth: Present: Moist Mucous Membranes Neck: Present: Normal Range of Motion Respiratory/Chest: Present: Clear to Auscultation, Good Air Exchange. No: Respiratory Distress, Accessory Muscle Use Cardiovascular: Present: Regular Rate and Rhythm, Normal S1, S2. No: Murmurs Abdomen: Present: Normal Bowel Sounds. No: Tenderness, Distention, Peritoneal Signs Back: Present: Normal Inspection Upper Extremity: Present: Normal Inspection, Tenderness (Mild tenderness of right lower ribs). No: Cyanosis, Edema Lower Extremity: Present: Normal Inspection. No: Edema Neurological: Present: GCS=15, Speech Normal Skin: Present: Warm, Dry, Normal Color. No: Rashes Psychiatric: Present: Alert, Oriented x 3, Normal Insight, Normal Concentration Medical Decision Making ED Course and Treatment: 06/07/17 02:35 Impression: 56 year old male presents complaining of right lower rib pain after sitting up in bed. Patient past medical history includes renal cancer s/p nephrectomy, and lobectomy Plan: -- Tylenol -- Ribs Right & PA Chest X-Ray -- Reassess and disposition Prior Visits: Notes and results from previous visits were reviewed. Patient was last seen in the emergency department on 04/03/2017 left neck pain that radiates to the left arm for the past 2 days. Patient was admitted. Progress Notes: - RAD Interpretation Narrative RAD Interpretations (Text): 06/07/17 04:23 NAD, no ptx, fracture or infiltrate Radiology Orders: 06/07/17 02:58 RIBS RIGHT & PA CHEST [RAD] Stat Carton Machine Operator: ED Physician - Medication Orders Current Medication Orders: Discontinued Medications Acetaminophen (Tylenol 325mg Tab) 650 mg PO STAT STA Stop: 06/07/17 03:00 Last Admin: 06/07/17 03:36 Dose: 650 mg MAR Pain/Vitals Document 06/07/17 03:36 YP (Rec: 06/07/17 03:36 YP [id number]) Pain Reassessment Is This A Pain ReAssessment? No Sleep Is patient sleeping during reassessment? No Presence of Pain Presence of Pain Yes - Scribe Statement The provider has reviewed the documentation as recorded by the Oscar Reyes Provider Scribe Attestation: All medical record entries made by the Christianaibscot were at my direction and personally dictated by me. I have reviewed the chart and agree that the record accurately reflects my personal performance of the history, physical exam, medical decision making, and the department course for this patient. I have also personally directed, reviewed, and agree with the discharge instructions and disposition. Disposition/Present on Arrival - Present on Arrival Any Indicators Present on Arrival: No History of DVT/PE: No History of Uncontrolled Diabetes: No Urinary Catheter: No History of Decub. Ulcer: No History Surgical Site Infection Following: None - Disposition Have Diagnosis and Disposition been Completed?: Yes Diagnosis: Rib pain on right side Disposition: HOME/ ROUTINE Disposition Time: 04:23 Patient Plan: Discharge Patient Problems: Current Active Problems Problem Status Onset Rib pain on right side Acute Condition: IMPROVED Discharge Instructions (ExitCare): Rib Contusion (ED) Prescriptions: Lidocaine 5% [Lidoderm] 1 ea TD Q12 PRN #30 patch PRN Reason: Pain, Moderate (4-7) Referrals: Erin Felix DO [Primary Care Provider] - Follow up with primary Forms: Yippy (Faroese)
[2017-06-07 04:38] VITALS: BP 124/83; PULSE 59; RESP 18
--- NOTE | 2017-06-07 09:25 | RAD ---
PROCEDURE: Radiographs of the Chest and Right Ribs. HISTORY: rib pain COMPARISON: None available. TECHNIQUE: Frontal radiograph of the chest and multiple oblique radiographs of the right ribs were obtained. FINDINGS: RIGHT RIBS: No fracture or focal lesion visualized. LUNGS: Clear. PLEURA: Minimal blunting of right costophrenic angle may reflect pleural effusion or chronic pleural thickening. No pneumothorax noted. CARDIOVASCULAR: Normal sized heart. No pulmonary vascular congestion. OTHER FINDINGS: None. IMPRESSION: No evidence of right rib fracture. Possible small right pleural effusion. No pneumothorax.
== END 2017-06-07 04:39 | disposition home or self-care (01) ==
LOC: ED 01:43
DX: R07.81 Pleurodynia (principal); Z98.890 Other specified postprocedural states

== ENCOUNTER 2018-11-12 23:29 | Emergency (ER) | payer MEDICARE, OTHER ==
[2018-11-13 00:12] VITALS: BP 143/85; RESP 18; TEMP 98.5; BMI 26.5
--- NOTE | 2018-11-13 00:56 | ED PDOC ---
Arrival/HPI <KalynSantiago albrecht - Last Filed: 11/13/18 01:08> - General Historian: Patient - History of Present Illness Narrative History of Present Illness (Text): 11/13/18 00:48 58 year old female, whose past medical history includes renal cell ca (s/p right kidney resection) and interstitial cystitis, presents to the emergency department complaining of UTI symptoms, for 4 days. Patient informs of urinary frequency and dysuria. Patient informs of discomfort while urinating at her baseline due to her interstitial cystitis, however stating discomfort worsened prompting her visit to the ER. Patient denies any fevers, chills, nausea, vomiting, hematuria, vaginal bleeding, vaginal discharge, abdominal pain, back pain, chest pain, shortness of breath, or any other complaint. Time/Duration: Prior to Arrival (Worsened pain), < week Symptom Onset: Gradual Symptom Course: Unchanged Quality: Aching Activities at Onset: Light Context: Home <Elina Farris - Last Filed: 11/15/18 19:16> - General Chief Complaint: Female Genitourinary Time Seen by Provider: 11/12/18 23:33 Past Medical History - Provider Review Nursing Documentation Reviewed: Yes - Infectious Disease Hx of Infectious Diseases: None - Tetanus Immunization Tetanus Immunization: Unknown - Cardiac Hx Cardiac Disorders: Yes Hx Hypertension: Yes - Pulmonary Hx Respiratory Disorders: Yes Hx Asthma: Yes (SEASONAL-MOSTLY WEATHER, BEEN HOSPITALIZED) Other/Comment: NODULES IN LUNGS - Neurological Hx Neurological Disorder: Yes Hx Dizziness: Yes Hx Paralysis: No - HEENT Hx HEENT Disorder: No Other/Comment: glasses,dry eyes - Renal Hx Renal Disorder: Yes Hx Renal Cancer: Yes (DX: RENAL MASS JANUARY 2015) Other/Comment: Interstitial cystitis. Nephrectomy - Endocrine/Metabolic Hx Endocrine Disorders: No - Hematological/Oncological Hx Blood Disorders: No Hx Blood Transfusions: No - Integumentary Hx Dermatological Disorder: No - Musculoskeletal/Rheumatological Hx Musculoskeletal Disorders: No - Gastrointestinal Hx Gastrointestinal Disorders: Yes Hx Gastroesophageal Reflux: Yes Other/Comment: gi bleed - Genitourinary/Gynecological Hx Genitourinary Disorders: Yes Other/Comment: "INTERSTITIAL CYSTITIS" - Psychiatric Hx Psychophysiologic Disorder: Yes Hx Depression: Yes Hx Emotional Abuse: No Hx Physical Abuse: No Hx Substance Use: No - Surgical History Hx Appendectomy: Yes Hx Pulmonary Surgery: Yes (right lobectomy) Other/Comment: right nephrectomy - Anesthesia Hx Anesthesia: Yes Hx Anesthesia Reactions: Yes (N/V,DIZZINESS) Hx Malignant Hyperthermia: No - Suicidal Assessment Feels Threatened In Home Enviroment: No <Elina Farris - Last Filed: 11/15/18 19:16> Family/Social History - Physician Review Nursing Documentation Reviewed: Yes Family/Social History: No Known Family HX Smoking Status: Former Smoker Hx Alcohol Use: No Hx Substance Use: No Hx Substance Use Treatment: No <Elina Farris - Last Filed: 11/15/18 19:16> Allergies/Home Meds <Santiago Mccain - Last Filed: 11/13/18 01:08> <Elina Farris - Last Filed: 11/15/18 19:16> Allergies/Adverse Reactions: Allergies gluten Allergy (Severe, Verified 11/13/18 00:12) DIARRHEA lactose Allergy (Severe, Verified 11/13/18 00:12) DIARRHEA Home Medications: Home Meds Medication Instructions Recorded Confirmed Amitriptyline [Elavil] 5 mg PO DAILY PRN 07/31/15 06/22/16 Zolpidem Tartrate [Ambien] 5 mg PO HS 07/31/15 06/22/16 Fluticasone Propionate [Flonase] 2 spray IN DAILY 06/22/16 06/22/16 Hydroxyzine HCl 10 mg PO HS 06/22/16 06/22/16 Lisinopril [Zestril] 5 mg PO BID 06/22/16 06/22/16 Pentosan Polysulfate Sodium 100 mg PO DAILY 06/22/16 06/22/16 [Elmiron] Ranitidine HCl [Zantac] 150 mg PO DAILY 06/22/16 06/22/16 Review of Systems - Physician Review All systems were reviewed & negative as marked: Yes - Review of Systems Constitutional: Normal. absent: Fevers, Night Sweats Eyes: Normal. absent: Vision Changes ENT: Normal. absent: Sore Throat, Sinus Congestion Respiratory: Normal. absent: SOB Cardiovascular: Normal. absent: Chest Pain, Palpitations, Syncope Gastrointestinal: Normal. absent: Abdominal Pain, Nausea, Vomiting Genitourinary Female: Dysuria, Frequency. absent: Hematuria, Vaginal Bleeding, Vaginal Discharge Musculoskeletal: Normal. absent: Back Pain Skin: Normal. absent: Rash Neurological: Normal. absent: Headache, Dizziness <Elina Farris - Last Filed: 11/15/18 19:16> Physical Exam Vital Signs Temp Pulse Resp BP Pulse Ox 11/13/18 00:02 98.5 F 59 L 18 143/85 100 <Santiago Mccain - Last Filed: 11/13/18 01:08> Vital Signs Reviewed: Yes Vital Signs Temp Pulse Resp BP Pulse Ox 11/13/18 00:02 98.5 F 59 L 18 143/85 100 Temperature: Afebrile Blood Pressure: Normal Pulse: Regular Respiratory Rate: Normal Appearance: Positive for: Well-Appearing, Non-Toxic, Comfortable Pain Distress: None Mental Status: Positive for: Alert and Oriented X 3 - Systems Exam Head: Present: Atraumatic, Normocephalic Pupils: Present: PERRL Extroacular Muscles: Present: EOMI Conjunctiva: Present: Normal Mouth: Present: Moist Mucous Membranes Neck: Present: Normal Range of Motion. No: Meningeal Signs Respiratory/Chest: Present: Clear to Auscultation, Good Air Exchange. No: Respiratory Distress, Accessory Muscle Use Cardiovascular: Present: Regular Rate and Rhythm, Normal S1, S2, Peripheal Pulses Present Abdomen: Present: Normal Bowel Sounds. No: Tenderness, Distention, Peritoneal Signs Back: Present: Normal Inspection. No: CVA Tenderness Upper Extremity: Present: Normal Inspection, Normal ROM, NORMAL PULSES, Neurovascularly Intact, Capillary Refill < 2s. No: Cyanosis, Edema, Temperature Abnormalties Lower Extremity: Present: Normal Inspection, Normal ROM. No: Edema Neurological: Present: GCS=15, CN II-XII Intact, Speech Normal, Motor Func Darrell sly Intact, Normal Sensory Function, Gait Normal Skin: Present: Warm, Dry, Normal Color. No: Rashes Psychiatric: Present: Alert, Oriented x 3, Normal Insight, Normal Concentration, Normal Affect, Normal Mood <Elina Farris - Last Filed: 11/15/18 19:16> Medical Decision Making - Lab Interpretations Lab Results: Urine Color Yellow (YELLOW) 11/13/18 00:39 Urine Appearance Clear (CLEAR) 11/13/18 00:39 Urine pH 6.5 (4.7-8.0) 11/13/18 00:39 Ur Specific [place] <= 1.005 (1.005-1.035) 11/13/18 00:39 Urine Protein Negative mg/dL (<30 mg/dL) 11/13/18 00:39 Urine Glucose (UA) Negative mg/dL (NEGATIVE) 11/13/18 00:39 Urine Ketones Negative mg/dL (NEGATIVE) 11/13/18 00:39 Urine Blood Negative (NEGATIVE) 11/13/18 00:39 Urine Nitrate Negative (NEGATIVE) 11/13/18 00:39 Urine Bilirubin Negative (NEGATIVE) 11/13/18 00:39 Urine Urobilinogen 0.2 E.U./dL (<1 E.U./dL) 11/13/18 00:39 Ur Leukocyte Esterase Trace Alexandra/uL (NEGATIVE) H 11/13/18 00:39 <Santiago Mccain - Last Filed: 11/13/18 01:08> ED Course and Treatment: 11/13/18 00:59 Impression: 58 year old female presents with UTI symptoms. Plan: -- CMP -- CBC -- Coags -- POC -- Urinalysis -- Reassess and disposition Prior Visits: Notes and results from previous visits were reviewed. Progress Notes: 11/13/18 01:51 UA shows trace leuk esterase Potassium elevated at 5.5. Will get EKG to ensure no change, and redraw p otassium. EKG shows sinus bradycardia at 41 without any changes indicative of hyperkalemia. Pt has history of bradycardia documented on multiple past EKGs. She is asymptomatic. Denies chest pain, SOB, lightheadedness, confusion, dizziness, vision changes. Pt is not hypotensive. HR noted to be 50-60 on monitor throughout visit. Repeat potassium 4.8 Case and diagnostic testing, including EKG discussed with Dr. Mccain who recommends discharge with Keflex prescription for symptomatic UTI. Advised urologist and PMD followup. Diagnostic testing results and plan of care discussed with patient. Strict instructions given regarding prescription use, importance of followup, and signs/symptoms to return to ER including back pain, fever, vomiting, or any other new/worsening symptoms. Pt verbalized understanding of discussion. Patient is A&Ox3, ambulating with steady gait, with vital signs stable for discharge. - Lab Interpretations Lab Results: 11/13/18 01:06 11/13/18 01:55 Lab Results 11/13/18 01:55: Potassium 4.8 11/13/18 01:06: Sodium 137, Potassium 5.5 H, Chloride 101, Carbon Dioxide 28, Anion Gap 13, BUN 12, Creatinine 0.8, Est GFR ( Amer) > 60, Est GFR (Non- Af Amer) > 60, Random Glucose 101, Calcium 9.3, Total Bilirubin 0.4, AST 26, ALT 21, Alkaline Phosphatase 137 H, Total Protein 7.7, Albumin 4.5, Globulin 3.2, Albumin/Globulin Ratio 1.4 11/13/18 01:06: PT 12.4, INR 1.12, APTT 30.1 11/13/18 01:06: WBC 6.1, RBC 4.80, Hgb 14.2, Hct 43.0, MCV 89.6, MCH 29.6, MCHC 33.0, RDW 14.2, Plt Count 254, MPV 10.2, Neut % (Auto) 53.0, Lymph % (Auto) 39.0 H, [place] % (Auto) 5.8, Eos % (Auto) 1.2 L, Baso % (Auto) 1.0, Lymph # (Auto) 2.4, [place] # (Auto) 0.4, Eos # (Auto) 0.1, Baso # (Auto) 0.06, Absolute Neuts (auto) 3.21 11/13/18 00:39: Urine Color Yellow, Urine Appearance Clear, Urine pH 6.5, Ur Specific [place] <= 1.005, Urine Protein Negative, Urine Glucose (UA) Negative, Urine Ketones Negative, Urine Blood Negative, Urine Nitrate Negative, Urine Bilirubin Negative, Urine Urobilinogen 0.2, Ur Leukocyte Esterase Trace H, Urine RBC 0 - 2, Urine WBC 1 - 3, Ur Epithelial Cells 0 - 2, Urine Bacteria Rare <Elina Farris - Last Filed: 11/15/18 19:16> - PA / DRIFTMAN / Resident Statement / has reviewed & agrees with the documentation as recorded. <Santiago Mccain - Last Filed: 11/13/18 01:08> - Scribe Statement The provider has reviewed the documentation as recorded by the Oscar Cain Provider Scribe Attestation: All medical record entries made by the Scribe were at my direction and personally dictated by me. I have reviewed the chart and agree that the record accurately reflects my personal performance of the history, physical exam, medical decision making, and the department course for this patient. I have also personally directed, reviewed, and agree with the discharge instructions and disposition. <Elina Farris - Last Filed: 11/15/18 19:16> Disposition/Present on Arrival <Santiago Mccain - Last Filed: 11/13/18 01:08> - Present on Arrival Any Indicators Present on Arrival: No History of DVT/PE: No History of Uncontrolled Diabetes: No Urinary Catheter: No History of Decub. Ulcer: No History Surgical Site Infection Following: None - Disposition Have Diagnosis and Disposition been Completed?: Yes Disposition Time: 01:50 Patient Plan: Discharge <Elina Farris - Last Filed: 11/15/18 19:16> - Disposition Diagnosis: UTI (urinary tract infection) Disposition: HOME/ ROUTINE Condition: STABLE Discharge Instructions (ExitCare): Hyperkalemia (DC), Urinary Tract Infection, Adult (DC) Additional Instructions: Increase fluids Keflex every 12 hours for 7 days Followup with your urologist tomorrow Followup with your primary doctor within 2 days Return to ER with any new/worsening symptoms Prescriptions: Cephalexin [Keflex] 500 mg PO BID 7 Days #13 capsule Referrals: Mai Burt MD [Medical Doctor] - Follow up with primary [facility] at [facility] [place], [place] [Outside] - Follow up with primary Forms: [facility] (K[place]akh), WORK NOTE
[2018-11-13 00:59] LABS: PH,URINE 6.5 (4.7-8.0); URINE BILIRUBIN NEGATIVE (NEGATIVE); URINE BLOOD NEGATIVE (NEGATIVE); URINE GLUCOSE (UA) NEGATIVE (NEGATIVE); URINE LEUKOCYTE ESTERASE TRACE Leu/uL (NEGATIVE); URINE PROTEIN NEGATIVE mg/dL (<30 mg/dL); URINE UROBILINOGEN 0.2 E.U./dL (<1 E.U./dL)
[2018-11-13 01:00] LABS: URINE APPEARANCE CLEAR (CLEAR); URINE COLOR YELLOW (YELLOW)
[2018-11-13 01:23] LABS: URINE EPITHELIAL CELLS 0 - 2 /hpf (0-5); URINE RBC 0 - 2 /hpf (0-2)
[2018-11-13 01:28] LABS: BASO # 0.06 K/mm3 (0.0-2.0); EOS # 0.1 (0.0-0.7); EOS % 1.2 % (1.5-5.0); HEMOGLOBIN 14.2 g/dL (12.0-16.0); LYMPH # 2.4 (1.2-3.4); MEAN CELL VOLUME 89.6 fl (80.0-105.0); MEAN CORPUSCULAR HEMOGLOBIN 29.6 pg (25.0-35.0); MEAN PLATELET VOLUME 10.2 fl (7.0-11.0); MONO # 0.4 (0.1-0.6); MONO % 5.8 % (1.0-6.0); RBC 4.8 10^6/uL (3.5-6.1); RED CELL DISTRIBUTION WIDTH 14.2 % (11.5-14.5); WHITE BLOOD COUNT 6.1 10^3/uL (4.5-11.0)
[2018-11-13 01:31] LABS: INR 1.12; PARTIAL THROMBOPLASTIN TIME 30.1 Seconds (26.9-38.3); PROTHROMBIN TIME 12.4 SECONDS (9.4-12.5)
[2018-11-13 01:39] LABS: URINE BACTERIA RARE /hpf
[2018-11-13 01:40] LABS: ALB/GLOB RATIO 1.4 (1.1-1.8); ALBUMIN 4.5 g/dL (3.0-4.8); ALT/SGPT 21 U/L (7-56); AST/SGOT 26 U/L (14-36); BLOOD UREA NITROGEN 12 mg/dL (7-21); CALCIUM 9.3 mg/dL (8.4-10.5); GFR NON-AFRICAN AMERICAN > 60
[2018-11-13 02:25] VITALS: PULSE 63; O2SAT 97
--- NOTE | 2018-11-13 14:44 | CARD ---
APPROVED REPORT Date of service: 11/13/2018 EKG Measurement Heart [id number] <Conclusion> Marked sinus bradycardia Abnormal ECG
== END 2018-11-13 03:00 | disposition home or self-care (01) ==
LOC: ED 23:29
DX: N39.0 Urinary tract infection, site not specified (principal); I10 Essential (primary) hypertension; Z85.528 Personal history of other malignant neoplasm of kidney; Z87.891 Personal history of nicotine dependence

== ENCOUNTER 2018-11-23 15:21 | Emergency (ER) | payer MEDICARE, OTHER ==
[2018-11-23 15:59] VITALS: BMI 27.4
[2018-11-23 16:03] VITALS: RESP 18; TEMP 98.3
--- NOTE | 2018-11-23 16:49 | ED PDOC ---
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 Patient describes the pain as a constant pain, worsened with deep inspiration, described as sharp, currently 5/10 in nature. Denies pain radiating to arm, neck, diaphoresis, and n/vomiting. Patient states the pain started this past Friday and was when she was attempting to put on her clothes. Patient denies previous episodes in the past. States she has been taking Tylenol which offers temporary relief, however, the pain returns once the medicine wears off. Patient has outpatient appointment with Dr. Sullivan upcoming this Friday. Patient denies fevers, chills, chest pain, sob, n/v, constipation or diarrhea, and dysuria Time/Duration: < week Symptom Onset: Sudden Symptom Course: Improving Quality: Stabbing Severity Level: 5 Activities at Onset: Light <Nette Peterson - Last Filed: 11/23/18 18:28> <Narinder Gallo - Last Filed: 11/23/18 18:49> - General Chief Complaint: Back Pain Time Seen by Provider: 11/23/18 15:22 Past Medical History - Provider Review Nursing Documentation Reviewed: Yes Primary Care Provider: Erin Felix V - Infectious Disease Hx of Infectious Diseases: None - Tetanus Immunization Tetanus Immunization: Unknown - Cardiac Hx Cardiac Disorders: Yes Hx Hypertension: Yes - Pulmonary Hx Respiratory Disorders: Yes Hx Asthma: Yes (SEASONAL-MOSTLY WEATHER, BEEN HOSPITALIZED) Other/Comment: NODULES IN LUNGS - Neurological Hx Neurological Disorder: Yes Hx Dizziness: Yes Hx Paralysis: No - HEENT Hx HEENT Disorder: No Other/Comment: glasses,dry eyes - Renal Hx Renal Disorder: Yes Hx Renal Cancer: Yes (DX: RENAL MASS JANUARY 2015) Other/Comment: Interstitial cystitis. Nephrectomy - Endocrine/Metabolic Hx Endocrine Disorders: No - Hematological/Oncological Hx Blood Disorders: No Hx Blood Transfusions: No - Integumentary Hx Dermatological Disorder: No - Musculoskeletal/Rheumatological Hx Musculoskeletal Disorders: No - Gastrointestinal Hx Gastrointestinal Disorders: Yes Hx Gastroesophageal Reflux: Yes Other/Comment: gi bleed - Genitourinary/Gynecological Hx Genitourinary Disorders: Yes Other/Comment: "INTERSTITIAL CYSTITIS" - Psychiatric Hx Psychophysiologic Disorder: Yes Hx Depression: Yes Hx Emotional Abuse: No Hx Physical Abuse: No Hx Substance Use: No - Surgical History Hx Appendectomy: Yes Hx Pulmonary Surgery: Yes (right lobectomy) Other/Comment: right nephrectomy - Anesthesia Hx Anesthesia: Yes Hx Anesthesia Reactions: Yes (N/V,DIZZINESS) Hx Malignant Hyperthermia: No - Suicidal Assessment Feels Threatened In Home Enviroment: No <Nicholas,Madaser - Last Filed: 11/23/18 18:28> Family/Social History - Physician Review Nursing Documentation Reviewed: Yes Family/Social History: No Known Family HX Smoking Status: Former Smoker Hx Alcohol Use: No Hx Substance Use: No Hx Substance Use Treatment: No <NicholasMadaser - Last Filed: 11/23/18 18:28> Allergies/Home Meds <NicholasMadaser - Last Filed: 11/23/18 18:28> <BosNarinder walden - Last Filed: 11/23/18 18:49> Allergies/Adverse Reactions: Allergies gluten Allergy (Severe, Verified 11/23/18 15:59) DIARRHEA lactose Allergy (Severe, Verified 11/23/18 15:59) DIARRHEA Home Medications: Home Meds Medication Instructions Recorded Confirmed Amitriptyline [Elavil] 5 mg PO DAILY PRN 07/31/15 06/22/16 Zolpidem Tartrate [Ambien] 5 mg PO HS 07/31/15 06/22/16 Fluticasone Propionate [Flonase] 2 spray IN DAILY 06/22/16 06/22/16 Hydroxyzine HCl 10 mg PO HS 06/22/16 06/22/16 Lisinopril [Zestril] 5 mg PO BID 06/22/16 06/22/16 Pentosan Polysulfate Sodium 100 mg PO DAILY 06/22/16 06/22/16 [Elmiron] Ranitidine HCl [Zantac] 150 mg PO DAILY 06/22/16 06/22/16 Review of Systems - Physician Review All systems were reviewed & negative as marked: Yes - Review of Systems Constitutional: Normal. absent: Fatigue, Weight Change, Fevers Eyes: Normal. absent: Vision Changes ENT: Normal Respiratory: Normal. absent: SOB, Cough, Sputum Cardiovascular: Normal, Other (substernal chest pain) Gastrointestinal: Normal. absent: Abdominal Pain, Stool Changes, Constipation Genitourinary Female: Normal. absent: Dysuria, Frequency, Hematuria Musculoskeletal: Normal, Back Pain. absent: Arthralgias Skin: Normal. absent: Rash, Pruritis, Skin Lesions Neurological: Normal. absent: Headache, Dizziness, Focal Weakness Psychiatric: Normal. absent: Anxiety, Depression, Suicidal Ideation <Nicholas,Madaser - Last Filed: 11/23/18 18:28> Physical Exam Vital Signs Reviewed: Yes Vital Signs Temp Pulse Resp BP Pulse Ox 11/23/18 16:02 98.3 F 52 L 18 130/74 98 Temperature: Afebrile Blood Pressure: Normal Pulse: Bradycardic Respiratory Rate: Normal Appearance: Positive for: Well-Appearing, Non-Toxic, Comfortable Pain Distress: None Mental Status: Positive for: Alert and Oriented X 3 - Systems Exam Head: Present: Atraumatic, Normocephalic Pupils: Present: PERRL. No: Sluggish, Non-Reactive, Pinpoint Extroacular Muscles: Present: EOMI. No: Gaze Palsy Conjunctiva: Present: Normal Neck: Present: Normal Range of Motion. No: Meningeal Signs Respiratory/Chest: Present: Clear to Auscultation, Good Air Exchange. No: Respiratory Distress, Accessory Muscle Use, Tender to Palpation Cardiovascular: Present: Normal S1, S2, Bradycardic. No: Murmurs, Irregular Rhythm Abdomen: Present: Normal Bowel Sounds. No: Tenderness, Distention, Peritoneal Signs Upper Extremity: Present: Normal Inspection. No: Cyanosis, Edema Lower Extremity: Present: Normal Inspection. No: Edema, CALF TENDERNESS Neurological: Present: GCS=15, CN II-XII Intact, Speech Normal Skin: Present: Warm, Dry, Normal Color Psychiatric: Present: Alert, Oriented x 3, Normal Insight, Normal Concentration <Nicholas,Madaser - Last Filed: 11/23/18 18:28> Vital Signs Temp Pulse Resp BP Pulse Ox 11/23/18 16:02 98.3 F 52 L 18 130/74 98 <Narinder Gallo - Last Filed: 11/23/18 18:49> Medical Decision Making ED Course and Treatment: 11/23/18 17:09 Impression 58 yo female w/ PMH of renal cell carcinoma (s/p resection) w/ lung mets (s/p lobectomy) presents to ED for evaluation of substernal chest pain radiating to the back w/ associated shortness of breath. Plan D-Dimer Cxray EKG Prior Visits 10/2018: UTI 05/2017: Rib Pain 03/2017: Chest pain, syncope, bradycardia 07/05: sore throat Progress Notes EKG shows sinus bradycardia (similar EKGs on prior admissions) Wells Criteria 0 points - 1.3% chance of PE in ED population Cannot PERC outpatient, d-dimer level normal Patient unlikely has pulmonary embolism likely patient has muscle strain Continue using Tylenol as needed q6h F/U outpatient with Dr. Rowan 11/23/18 17:48 11/23/18 18:30 Re-evaluation Time: 18:28 Reassessment Condition: Improving,but remains with symptoms - Lab Interpretations I have reviewed the lab results: Yes Interpretation: All labs normal - RAD Interpretation Narrative RAD Interpretations (Text): 11/23/18 18:29 11/23/18: Chest X-ray with no active disease as interpreted by resident Video Game Designer: ED Physician - EKG Interpretation Interpreted by ED Physician: Yes Type: 12 lead EKG Comparison: Similar to previous EKG <Nette Peterson - Last Filed: 11/23/18 18:28> ED Course and Treatment: 11/23/18 18:49 Patient Seen with Resident: In agreement with resident note which contains more details about the patient. Patient seen and evaluated with resident. Came up with plan and treatment together. - Lab Interpretations Lab Results: D-Dimer, Quantitative 212 ng/mlDDU (0-243) 11/23/18 17:24 - RAD Interpretation Radiology Orders: 11/23/18 16:56 CHEST TWO VIEWS (PA/LAT) [RAD] Stat <Narinder Gallo - Last Filed: 11/23/18 18:49> - PA / DRINKING WATER TECHNICIAN / Resident Statement / has reviewed & agrees with the documentation as recorded. / has examined the patient and agrees with the treatment plan. <Narinder Gallo - Last Filed: 11/23/18 18:49> Disposition/Present on Arrival - Present on Arrival Any Indicators Present on Arrival: No History of DVT/PE: No History of Uncontrolled Diabetes: No Urinary Catheter: No History of Decub. Ulcer: No History Surgical Site Infection Following: None - Disposition Have Diagnosis and Disposition been Completed?: Yes Disposition Time: 06:34 Patient Plan: Discharge <Nette Peterson - Last Filed: 11/23/18 18:28> <Narinder Gallo - Last Filed: 11/23/18 18:49> - Disposition Diagnosis: Pleuritic chest pain, Muscle strain Disposition: HOME/ ROUTINE Patient Problems: Current Active Problems Problem Status Onset Pleuritic chest pain Acute Muscle strain Acute Condition: STABLE Discharge Instructions (ExitCare): Muscle Strain, Pleuritic Chest Pain, Muscle Strain (DC), Chest Pain (ED) Referrals: Erin Felix DO [Primary Care Provider] - Follow up with primary Forms: [employer] ([employer] [place])
[2018-11-23 19:03] VITALS: BP 150/90; PULSE 54; O2SAT 99
--- NOTE | 2018-11-24 07:14 | CARD ---
APPROVED REPORT Date of service: 11/23/2018 EKG Measurement Heart [id number] <Conclusion> Marked sinus bradycardia Abnormal ECG
--- NOTE | 2018-11-24 08:53 | RAD ---
Date of service: 11/23/2018 HISTORY: Shortness of breath. COMPARISON: 06/07/2017. TECHNIQUE: Chest PA and lateral views FINDINGS: LUNGS: No active pulmonary disease. PLEURA: No significant pleural effusion identified. No pneumothorax apparent. CARDIOVASCULAR: No aortic atherosclerotic calcification present. Normal cardiac size. No pulmonary vascular congestion. OSSEOUS STRUCTURES: No significant abnormalities. VISUALIZED UPPER ABDOMEN: Normal. OTHER FINDINGS: None. IMPRESSION: No active disease. No significant interval change compared to the prior examination(s).
== END 2018-11-23 19:06 | disposition home or self-care (01) ==
LOC: ED 15:21
DX: R07.81 Pleurodynia (principal); S29.011A Strain of muscle and tendon of front wall of thorax, initial encounter; X58.XXXA Exposure to other specified factors, initial encounter; I10 Essential (primary) hypertension; Z87.891 Personal history of nicotine dependence